=== PATIENT | male | born 1975 | race Hispanic/Latino ===

== ENCOUNTER 2016-12-10 16:40 | Emergency (ER) | payer MEDICAID ==
[2016-12-10 17:02] VITALS: BMI 23.7
[2016-12-10 17:45] LABS: URINE BILIRUBIN NEGATIVE (NEGATIVE); URINE BLOOD NEGATIVE (NEGATIVE); URINE CLARITY Clear (Clear); URINE COLOR Yellow (YELLOW); URINE GLUCOSE (UA) NORMAL (Normal); URINE LEUKOCYTE ESTERASE NEG Leu/uL (Negative); URINE NITRATE NEGATIVE (NEGATIVE); URINE PROTEIN NEGATIVE (NEGATIVE); URINE UROBILINOGEN NORMAL mg/dL (0.2-1.0)
[2016-12-10] MEDS ORDERED: Iohexol 240 (50 ml) PO STA (18:19)
[2016-12-10] MEDS ORDERED: Iohexol 240 (50 ml) ONE (18:30)
[2016-12-10 18:33] LABS: BASO % 0.3 % (0.0-2.0); EOS # 0.1 K/uL (0.0-0.7); EOS % 1.3 % (0.0-4.0); HEMOGLOBIN 13.7 g/dL (12.0-18.0); LYMPH # 2.2 K/uL (1.0-4.3); LYMPH % 22.8 % (20.0-40.0); MEAN CELL VOLUME 92.7 fL (80.0-94.0); MEAN CORPUSCULAR HEMOGLOBIN 31.1 pg (27.0-31.0); MEAN CORPUSCULAR HGB CONC 33.6 g/dL (33.0-37.0); MONO # 0.6 K/uL (0.0-0.8); MONO % 6.4 % (0.0-10.0); NEUT # 6.7 K/uL (1.8-7.0); NEUT % 69.2 % (50.0-75.0); RBC 4.41 Mil/uL (4.40-5.90); RED CELL DISTRIBUTION WIDTH 13.2 % (11.5-14.5); WHITE BLOOD COUNT 9.7 K/uL (4.8-10.8)
[2016-12-10 18:43] LABS: ALBUMIN 4.3 g/dL (3.5-5.0)
[2016-12-10 18:45] LABS: GFR AFRICAN-AMERICAN > 60; GFR NON-AFRICAN AMERICAN > 60
[2016-12-10 18:46] LABS: ALB/GLOB RATIO 1.6 (1.0-2.1); ALT/SGPT 29 U/L (21-72); AST/SGOT 25 U/L (17-59); BLOOD UREA NITROGEN 15 mg/dL (9-20); CALCIUM 9.1 mg/dl (8.6-10.4); LIPASE 61 U/L (23-300)
--- NOTE | 2016-12-10 18:58 | C.PDOC ---
History Of Present Illness <Kelle Moore - Last Filed: 12/10/16 20:02> <Bishop Moran - Last Filed: 12/10/16 22:30> 41 y/o male presents to the ED with complaints of lower abdominal pain, nausea, vomiting and diarrhea x3 days. Pt with history of diverticulitis with admission. Pt states symptoms are similar. Denies fever, chills, chest pain or any other complaints. (Kelle Moore) History Per: Patient History/Exam Limitations: no limitations Onset/Duration Of Symptoms: Days, Waxing/Waning Severity: Moderate Location Of Pain/Discomfort: RLQ, LLQ Radiation Of Pain To:: None Quality Of Discomfort: "Pain" Associated Symptoms: Nausea, Vomiting, Diarrhea. denies: Fever, Chills, Chest Pain Exacerbating Factors: None Alleviating Factors: None Recent travel outside of the [place]: No <Kelle Moore - Last Filed: 12/10/16 20:02> <Bishop Moran - Last Filed: 12/10/16 22:30> Time Seen by Provider: 12/10/16 17:24 Chief Complaint (Nursing): Abdominal Pain Past Medical History Reviewed: Historical Data, Nursing Documentation, Vital Signs Family History: States: Unknown Family Hx - Social History Hx Tobacco Use: Yes Hx Alcohol Use: No Hx Substance Use: No - Immunization History Hx Tetanus Toxoid Vaccination: Yes (2013) Hx Influenza Vaccination: No (not up to date) Hx Pneumococcal Vaccination: No (not up to date) <Kelle Moore - Last Filed: 12/10/16 20:02> Review Of Systems Except As Marked, All Systems Reviewed And Found Negative. Constitutional: Negative for: Fever, Chills Cardiovascular: Negative for: Chest Pain Respiratory: Negative for: Shortness of Breath Gastrointestinal: Positive for: Nausea, Vomiting, Abdominal Pain, Diarrhea <Kelle Moore - Last Filed: 12/10/16 20:02> Physical Exam - Physical Exam Appears: Non-toxic, No Acute Distress Skin: Warm, Dry, No Rash Head: Atraumatic, Normacephalic Cardiovascular: Rhythm Regular, No Murmur Respiratory: Normal Breath Sounds, No Rales, No Rhonchi, No Wheezing Gastrointestinal/Abdominal: Soft, Tenderness (lower abdominal), No Guarding, No Rebound Extremity: Bilateral: Atraumatic Neurological/Psych: Oriented x3, Normal Speech, Normal Cognition <Kelle Moore - Last Filed: 12/10/16 20:02> ED Course And Treatment - Laboratory Results Result Diagrams: 12/10/16 18:29 12/10/16 18:29 O2 Sat by Pulse Oximetry: 99 (room air) Pulse Ox Interpretation: Normal Progress Note: Plan: CT abdomen, labs, UA, IV fluids. Pt signed out to Dr. Moran <Kelle Moore - Last Filed: 12/10/16 20:02> - Laboratory Results Result Diagrams: 12/10/16 18:29 12/10/16 18:29 Pulse Ox Interpretation: Normal Reevaluation Time: 22:30 Reassessment Condition: Improved <Bishop Moran - Last Filed: 12/10/16 22:30> Disposition - Disposition Disposition Time: 19:10 <Kelle Moore - Last Filed: 12/10/16 20:02> Counseled Patient/Family Regarding: Studies Performed, Diagnosis, Need For Followup <Bishop Moran - Last Filed: 12/10/16 22:30> - Disposition Referrals: Maria L Workman MD [Medical Doctor] - Disposition: HOME/ ROUTINE Condition: FAIR Prescriptions: Ciprofloxacin [Cipro] 1 tab PO BID #14 tab Metronidazole [Flagyl] 500 mg PO TID #21 tablet Instructions: Diverticulitis (DC), Diverticulitis Diet (DC) - Clinical Impression Clinical Impression: Abdominal pain, Acute diverticulitis - PA / [employer]PERATOR / Resident Statement MD/DO has reviewed & agrees with the documentation as recorded. - Scribe Statement The provider has reviewed the documentation as recorded by the Scribe <Kelle Moore - Last Filed: 12/10/16 20:02> <Bishop Moran - Last Filed: 12/10/16 22:30> - Scribe Statement Willy Lynn All medical record entries made by the Scribe were at my direction and personally dictated by me. I have reviewed the chart and agree that the record accurately reflects my personal performance of the history, physical exam, medical decision making, and the department course for this patient. I have also personally directed, reviewed, and agree with the discharge instructions and disposition. (Kelle Moore) Physician Patient Turnover Patient Signed Over To: Bishop Moran Handoff Comments: Pending CT/dispo <Kelle Moore - Last Filed: 12/10/16 20:02>
[2016-12-10] MEDS ORDERED: Iohexol 350mg/ml 100 ML ONE (19:58)
--- NOTE | 2016-12-10 21:08 | CT ---
EXAM: CT Abdomen and Pelvis With Intravenous Contrast CLINICAL HISTORY: 41 years old, male; Pain; Abdominal pain; Flank; Lower; Additional info: Low abd pain, h/o colitis TECHNIQUE: Axial computed tomography images of the abdomen and pelvis with intravenous contrast. This CT exam was performed using one or more of the following dose reduction techniques: automated exposure control, adjustment of the mA and/or kV according to patient size, and/or use of iterative reconstruction technique. Coronal and sagittal reformatted images were created and reviewed. CONTRAST: 100 mL of visipaque 320 administered intravenously. COMPARISON: CT - ABD PELVIS IV CONTRAST ONLY 04/03/2015 7:17:42 PM FINDINGS: Lower thorax: Minimal atelectasis. ABDOMEN: Liver: Unremarkable. No mass. Gallbladder and bile ducts: No calcified stones. No ductal dilation. Pancreas: No ductal dilation. No mass. Spleen: No splenomegaly. Adrenals: No mass. Kidneys and ureters: Few punctate calculi within kidneys. No hydronephrosis. Stomach and bowel: Scattered diverticula within colon. Mild mural thickening short segment of proximal sigmoid/distal descending colon. Mild stranding within adjacent fat. Appendix: Normal caliber. No inflammation. PELVIS: Bladder: Unremarkable. Reproductive: Unremarkable as visualized. ABDOMEN and PELVIS: Intraperitoneal space: No significant fluid collection. No free air. Bones/joints: Mild degenerative changes of spine. No acute fracture. Soft tissues: Unremarkable. Vasculature: Unremarkable. No aneurysm. Lymph nodes: No pathologically enlarged lymph nodes. IMPRESSION: 1. Findings compatible with acute diverticulitis. Recommend endoscopy following resolution. 2. Incidental/non-acute findings are described above.
[2016-12-10] MEDS ORDERED: metroNIDAZOLE IV 500 mg/100 ml 500 MG/100 ML BAG IVPB SCH (21:45)
[2016-12-10] MEDS ORDERED: metroNIDAZOLE IV 500 mg/100 ml 500 MG/100 ML BAG ONE (21:50)
[2016-12-10] MEDS ORDERED: metroNIDAZOLE IV 500 mg/100 ml 500 MG/100 ML BAG IVPB STA (21:52)
[2016-12-10 22:34] VITALS: BP 122/70; PULSE 89; RESP 20; TEMP 98; O2SAT 98
== END 2016-12-10 22:34 | disposition home or self-care (01) ==
LOC: C.ER 16:40
DX: K57.92 Diverticulitis of intestine, part unspecified, without perforation or abscess without bleeding (principal); R10.9 Unspecified abdominal pain
CPT/HCPCS: 74177; 80053; 81001; 83690; 85025; 96365; 99285; Q9966; Q9967

== ENCOUNTER 2017-12-15 09:07 | Emergency (ER) | payer MEDICAID, OTHER ==
[2017-12-15 09:07] VITALS: BMI 23.7
[2017-12-15 09:23] VITALS: BP 139/71; PULSE 81; TEMP 98.4; O2SAT 98
[2017-12-15] MEDS ORDERED: Dexamethasone 4 mg/1 ml IM STA (09:43)
--- NOTE | 2017-12-15 09:45 | C.PDOC ---
Time Seen by Provider: 12/15/17 09:29 Chief Complaint (Nursing): Abnormal Skin Integrity Past Medical History Vital Signs: Last Vital Signs Temp 98.4 F 12/15/17 09:17 Pulse 81 12/15/17 09:17 Resp 20 12/15/17 09:17 BP 139/71 12/15/17 09:17 Pulse Ox 98 12/15/17 09:17 Family History: States: Unknown Family Hx - Social History Hx Tobacco Use: Yes Hx Alcohol Use: No Hx Substance Use: No - Immunization History Hx Tetanus Toxoid Vaccination: Yes (2013) Hx Influenza Vaccination: No (not up to date) Hx Pneumococcal Vaccination: No (not up to date) ED Course And Treatment O2 Sat by Pulse Oximetry: 98 Disposition Counseled Patient/Family Regarding: Diagnosis, Need For Followup, Rx Given - Disposition Referrals: Eugeen Workman MD [Staff Provider] - Disposition: HOME/ ROUTINE Disposition Time: 09:46 Condition: STABLE Additional Instructions: Rx sent to [facility] pharmacy Take prednisone daily Take Benadryrl for any itching Prescriptions: Methylprednisolone [Medrol Dose Pack (21 tabs)] 4 mg PO DAILY #21 mg Instructions: Poison [place], Poison [place], Poison [place] (DC) - POA Present On Arrival: None - Clinical Impression Clinical Impression: Contact dermatitis due to poison [place]
--- NOTE | 2017-12-15 09:47 | C.PDOC ---
History Of Present Illness 42 year old male presents to ED for evaluation of generalized itchy body rash. Patient states he was exposed to either poison breana or poison [place] while cleaning his yard yesterday. Otherwise, denies fever, or any other associated symptoms at this time. Time Seen by Provider: 12/15/17 09:29 Chief Complaint (Nursing): Abnormal Skin Integrity History Per: Patient History/Exam Limitations: no limitations Onset/Duration Of Symptoms: Days Current Symptoms Are (Timing): Still Present Location Of Injury: Right: Arm, Left: Arm Quality Of Symptoms: Itching Recent travel outside of the [place]: No Additional History Per: Patient Past Medical History Reviewed: Historical Data, Nursing Documentation, Vital Signs Vital Signs: Last Vital Signs Temp 98.4 F 12/15/17 09:17 Pulse 81 12/15/17 09:17 Resp 18 12/15/17 09:56 BP 139/71 12/15/17 09:17 Pulse Ox 98 12/15/17 09:56 Family History: States: Unknown Family Hx - Social History Hx Tobacco Use: Yes Hx Alcohol Use: No Hx Substance Use: No - Immunization History Hx Tetanus Toxoid Vaccination: Yes (2013) Hx Influenza Vaccination: No (not up to date) Hx Pneumococcal Vaccination: No (not up to date) Review Of Systems Except As Marked, All Systems Reviewed And Found Negative. Constitutional: Negative for: Fever, Chills Cardiovascular: Negative for: Chest Pain Respiratory: Negative for: Shortness of Breath Skin: Positive for: Rash Physical Exam - Physical Exam Appears: Non-toxic, No Acute Distress Skin: Warm, Dry, Rash (erythematous rash with vesicles and linear streaks to forarms and distal legs) Head: Atraumatic, Normacephalic Eye(s): bilateral: Normal Inspection Oral Mucosa: Moist Neck: Normal ROM, Supple Extremity: Normal ROM, No Deformity Neurological/Psych: Oriented x3, Normal Speech ED Course And Treatment O2 Sat by Pulse Oximetry: 98 (RA) Pulse Ox Interpretation: Normal Medical Decision Making Medical Decision Making: Impression: 42 year old male presents with itchy rash to forearm and legs, clinically appears allergic contact dermatitis to plant Plan: * Decadron Reassess Patient has no fever and in no distress. Patient has no difficulty breathing or swallowing. Patient stable for discharge. Disposition Counseled Patient/Family Regarding: Diagnosis, Need For Followup, Rx Given - Disposition Referrals: Eugene Workman MD [Staff Provider] - Disposition: HOME/ ROUTINE Disposition Time: 09:46 Condition: STABLE Additional Instructions: Rx sent to [facility] pharmacy Take prednisone daily Take Benadryrl for any itching Prescriptions: Methylprednisolone [Medrol Dose Pack (21 tabs)] 4 mg PO DAILY #21 mg Instructions: Poison [place], Poison [place], Poison [place] (DC) Forms: [employer] (Yakut) - POA Present On Arrival: None - Clinical Impression Clinical Impression: Contact dermatitis due to poison [place] - PA / [employer]ET[employer] / Resident Statement MD/DO has reviewed & agrees with the documentation as recorded. - Scribe Statement The provider has reviewed the documentation as recorded by the Silverioibpiper Lockhart All medical record entries made by the Douglas were at my direction and personally dictated by me. I have reviewed the chart and agree that the record accurately reflects my personal performance of the history, physical exam, medical decision making, and the department course for this patient. I have also personally directed, reviewed, and agree with the discharge instructions and disposition.
[2017-12-15] MEDS ORDERED: Dexamethasone 4 mg/1 ml ONE (09:51)
[2017-12-15 09:57] VITALS: RESP 18
== END 2017-12-15 09:56 | disposition home or self-care (01) ==
LOC: C.ER 09:07
DX: L23.7 Allergic contact dermatitis due to plants, except food (principal)
CPT/HCPCS: 96372; 99283; J1100

== ENCOUNTER 2018-01-21 16:54 | Emergency (ER) | payer MEDICAID, OTHER ==
[2018-01-21 16:54] VITALS: BMI 23.7
[2018-01-21 17:14] VITALS: BP 117/73; PULSE 91; RESP 18; TEMP 98.3; O2SAT 98
--- NOTE | 2018-01-21 17:37 | C.PDOC ---
History Of Present Illness 42 y/o male presents to the ER complaining of right knee pain which has been present for the past 2 days. Patient states that he was carrying a bike when he twisted his right knee. Patient denies having weakness and numbness. He reports that he had bilateral knee surgery secondary to injury and right elbow surgery many years ago. Time Seen by Provider: 01/21/18 17:15 Chief Complaint (Nursing): Lower Extremity Problem/Injury History Per: Patient History/Exam Limitations: no limitations Onset/Duration Of Symptoms: Days Current Symptoms Are (Timing): Still Present Severity: Moderate - Knee Description Of Injury: Twisted (right knee) Past Medical History Reviewed: Historical Data, Nursing Documentation, Vital Signs Vital Signs: Last Vital Signs Temp 98.3 F 01/21/18 17:10 Pulse 91 H 01/21/18 17:10 Resp 18 01/21/18 17:10 BP 117/73 01/21/18 17:10 Pulse Ox 98 01/21/18 18:01 - Medical History PMH: No Chronic Diseases Other Surgeries: Hx of surgeries Family History: States: No Known Family Hx - Social History Hx Tobacco Use: Yes Hx Alcohol Use: No Hx Substance Use: No - Immunization History Hx Tetanus Toxoid Vaccination: Yes (2013) Hx Influenza Vaccination: No (not up to date) Hx Pneumococcal Vaccination: No (not up to date) Review Of Systems Except As Marked, All Systems Reviewed And Found Negative. Musculoskeletal: Positive for: Other (right knee pain) Neurological: Negative for: Weakness, Numbness Physical Exam - Physical Exam Appears: Non-toxic, No Acute Distress Skin: Normal Color, Warm, Dry Head: Atraumatic, Normacephalic Eye(s): bilateral: Normal Inspection Nose: Normal Oral Mucosa: Moist Neck: Supple Chest: Symmetrical Extremity: Normal ROM, No Tenderness, Swelling (swelling to superior and medial aspect of right patella), Other (no laxity in right knee) Neurological/Psych: Oriented x3, Normal Speech ED Course And Treatment O2 Sat by Pulse Oximetry: 98 (RA) Pulse Ox Interpretation: Normal Medical Decision Making Medical Decision Making: Plan: --Motrin PO --Tylenol PO --X-Ray- Right Knee Updates: Spike wrap and knee immobilizer has been placed by medical lab tech instructor. Disposition Counseled Patient/Family Regarding: Studies Performed, Diagnosis, Need For Followup, Rx Given - Disposition Referrals: Sruthi Espinal MD [Staff Provider] - Disposition: HOME/ ROUTINE Disposition Time: 17:59 Condition: STABLE Prescriptions: Ibuprofen [Motrin] 600 mg PO TID #15 tab traMADol [Ultram] 50 mg PO BID #12 tab Instructions: Knee Sprain (DC) Forms: General Discharge Instructions, [facility] (Swedish), Work Excuse - POA Present On Arrival: None - Clinical Impression Clinical Impression: Joint swelling, Knee injury - Scribe Statement The provider has reviewed the documentation as recorded by the Douglas Taylor Provider Attestation: All medical record entries made by the Douglas were at my direction and personally dictated by me. I have reviewed the chart and agree that the record accurately reflects my personal performance of the history, physical exam, medical decision making, and the department course for this patient. I have also personally directed, reviewed, and agree with the discharge instructions and disposition.
--- NOTE | 2018-01-21 18:33 | RAD ---
Date of service: 01/21/2018 PROCEDURE: Right Knee Radiographs. HISTORY: twisting, pain, swelling COMPARISON: None. FINDINGS: BONES: Normal. No fracture. JOINTS: No acute fracture or destructive bony lesion identified. Marked joint space narrowing seen at the medial femorotibial compartment with accompanying marked cortical sclerosis and osteophyte development. Lesser similar change appears at the patellofemoral articulation and are mild to moderate at the lateral femorotibial compartment. JOINT EFFUSION: Moderate suprasellar bursa effusion identified. OTHER FINDINGS: None. IMPRESSION: Advanced osteoarthritis. No acute fracture, subluxation or dislocation.
== END 2018-01-21 18:13 | disposition home or self-care (01) ==
LOC: C.ER 16:54
DX: S89.91XA Unspecified injury of right lower leg, initial encounter (principal); X50.1XXA Overexertion from prolonged static or awkward postures, initial encounter; M25.461 Effusion, right knee; Z72.0 Tobacco use

== ENCOUNTER 2018-07-19 11:27 | Emergency (ER) | payer MEDICAID ==
[2018-07-19 11:27] VITALS: BMI 23.7
[2018-07-19 11:38] VITALS: BP 127/80; PULSE 73; RESP 18; TEMP 97.8; O2SAT 99
[2018-07-19] MEDS ORDERED: Lidocaine 1% Inj (20ml) INFIL STA (11:50)
--- NOTE | 2018-07-19 11:55 | C.PDOC ---
History Of Present Illness 42 y/o male pt presents to the ER c/o dental pain since yesterday. Pt has some broken teeth and poor dentition. Pt was supposed to have dental work today but because of the pain, pt assumed he had a dental abscess and decided to come to the ER. pt denies fever, oral discharge and trauma. Time Seen by Provider: 07/19/18 11:36 Chief Complaint (Nursing): Dental Pain History Per: Patient History/Exam Limitations: no limitations Onset/Duration Of Symptoms: Days (x1) Current Symptoms Are (Timing): Still Present Past Medical History Reviewed: Historical Data, Nursing Documentation, Vital Signs Vital Signs: Last Vital Signs Temp 97.8 F 07/19/18 11:30 Pulse 73 07/19/18 11:30 Resp 18 07/19/18 11:30 BP 127/80 07/19/18 11:30 Pulse Ox 99 07/19/18 11:30 Family History: States: Unknown Family Hx - Social History Hx Tobacco Use: Yes Hx Alcohol Use: No Hx Substance Use: No - Immunization History Hx Tetanus Toxoid Vaccination: Yes Hx Influenza Vaccination: Yes Hx Pneumococcal Vaccination: No Review Of Systems Constitutional: Negative for: Fever, Other (trauma ) ENT: Positive for: Other (broken teeth and poor dentition ) Skin: Negative for: Other (oral discharge ) Physical Exam - Physical Exam Appears: Non-toxic, No Acute Distress Skin: Warm, Dry Head: Normacephalic Oral Mucosa: Moist Tongue: Normal Appearing Lips: Normal Appearing Teeth: Caries (multiple ), Other (poor dentition ) Gingiva: Erythema (anterior to tooth 18 and 19 ), Swelling (anterior to tooth 18 and 19 ) Throat: Normal, No Erythema, No Exudate Chest: Symmetrical Cardiovascular: Rhythm Regular Respiratory: Normal Breath Sounds Neurological/Psych: Oriented x3, Normal Speech ED Course And Treatment O2 Sat by Pulse Oximetry: 99 (RA) Pulse Ox Interpretation: Normal Progress Note: Buckle nerve block: I&D attempted but no purulent discharge was expressed. pt has multiple antibiotic allergies that causes lip and tongue swelling including penicillin and clindomycin. Pt was then given flagyl and toradol injection. Pt is sent home with naproxen and flagyl and instructed to f/u with dental. Disposition Counseled Patient/Family Regarding: Diagnosis, Need For Followup, Rx Given - Disposition Referrals: [facility] [Outside] Disposition: HOME/ ROUTINE Disposition Time: 12:45 Condition: STABLE Additional Instructions: FOLLOW UP WITH YOUR DENTIST WITHIN 1 WEEK USE PAIN MEDICATION NEEDED RETURN TO ER IF SYMPTOMS WORSEN Prescriptions: metroNIDAZOLE [Flagyl] 500 mg PO TID #21 tab Naproxen [Naprosyn] 1 tab PO BID PRN #25 tab PRN Reason: Pain Instructions: Tooth Abscess (DC), Dental Pain (DC) Forms: [employer] (Maori) Print Language: BURMESE - Clinical Impression Clinical Impression: Dental abscess, Pain, dental - Scribe Statement The provider has reviewed the documentation as recorded by the Douglas Srivastava Do Provider Attestation: All medical record entries made by the Silverioibe were at my direction and personally dictated by me. I have reviewed the chart and agree that the record accurately reflects my personal performance of the history, physical exam, medical decision making, and the department course for this patient. I have also personally directed, reviewed, and agree with the discharge instructions and disposition.
[2018-07-19] MEDS ORDERED: Lidocaine Hydrochloride 10 ML INJ ONE (11:58)
== END 2018-07-19 12:48 | disposition home or self-care (01) ==
LOC: C.ER 11:27
DX: K04.7 Periapical abscess without sinus (principal); K08.89 Other specified disorders of teeth and supporting structures
CPT/HCPCS: 96372; 99284; J1885